=== PATIENT | male | born 1965 | race Caucasian/White ===

== ENCOUNTER 2017-04-01 13:43 | Emergency (ER) | payer OTHER ==
[~2017-04-01] VITALS: Ht 172.7 cm; Wt 118.9 kg
[~2017-04-01 13:43] MED LIST: AMBIEN10 MG PO; AMBIEN5 MG PO; AMITRIPTYLINE H25 MG PO; AMLODIPINE BESY10 MG PO; AMLODIPINE BESYL5 MG PO; AMLODIPINE PO; AMLODIPINE-BEN1 EAC5 PO; AUGMENTIN875 MG PO; AVELOX400 MG PO; AZOR 10/20 M1 TABLET PO; Ambien PO; BACTRIM PO; BACTRIM,SEPT1 TABLE1 PO; BACTRIM,SEPT1 TABLET PO; BENAZEPRIL PO; CEFTIN500 MG PO; CIALIS5 MG PO; CIPRO750 MG PO; CIPRODEX OTIC7.5 ML LEFT EAR; CLEOCIN300 MG PO; CLONIDINE HCL0.1 MG PO; Coumadin dosing per PO; Coumadin,Jantoven PO; DIOVAN HCT 31 TABLE1 PO; EAR DROPS15 ML BOTH EARS; EXFORGE HCT 101 EAC1 PO; Glucophage PO; HIZENTRA4 GM/20 ML SC; HYCODAN SYRUP5 ML PO; KEPPRA500 MG PO; KETOROLAC TROMET5 ML LEFT EYE; Kadian PO; LANTUS 3 M100 UNITS1 SC; LEVAQUIN750 MG PO; LIDODERM 5% P1 PATCH TD; LIVALO1 MG PO; LO-DOSE ASPIRIN81 M2 PO; LOVENOX SQ; LYRICA75 MG PO; METFORMIN HCL1000 MG PO; NIFEDIPINE ER30 MG PO; NIFEDIPINE ER60 MG PO; NORTRIPTYLINE H25 MG PO; NORVASC5 MG PO; NOVOLOG 10100 UNITS/ SC; NOVOLOG PE100 UNITS/ SC; ONDANSETRON HCL8 MG PO; OXCARBAZEPINE300 MG PO; OXYCODONE5 MG PO; PRED FORTE100 DROP/5 BOTH EYES; PREDNISONE10 MG; PREDNISONE10 MG PO; PREDNISONE20 MG PO; PROAIR HFA8.5 GM IH; PROTONIX40 MG PO; RANITIDINE HCL150 MG PO; SIMVASTATIN20 MG PO; SIMVASTATIN40 MG PO; SPIRIVA RESPIMAT4 GM IH; STOOL SOFTENER100 MG PO; SYMBICORT60 INHALAT IH; TOPAMAX100 MG PO; TOPAMAX25 MG PO; TOPIRAMATE100 MG PO; TOPIRAMATE25 MG PO; TRESIBA FL100 UNIT/1 SC; TRILEPTAL300 MG PO; TYLENOL WITH C1 EACH PO; VALTREX50 MG/ML; VALTREX50 MG/ML PO; VFEND200 MG PO; VIDAZA100 MG SQ; VORICONAZOLE200 MG PO; ZITHROMAX500 MG PO; ZOFRAN4 MG PO; ZOFRAN8 M1 PO; ZOFRAN8 MG PO; Zocor PO
[2017-04-01 15:28] LABS: HEMATOCRIT 45.4 % (38.0-50.0); HEMOGLOBIN 15.3 G/DL (12.5-16.6); MCH 31.6 PG (29.0-34.0); MCHC 33.7 G/DL (30.0-36.0); MCV 93.8 FL (86-99); PLATELET COUNT 177 K/uL (156-360); RBC DIS.WIDTH-CV 13.1 % (11.8-14.6); RBC DIS.WIDTH-SD 45.2 % (39-53); RED BLOOD COUNT 4.84 M/uL (4.00-5.50); WHITE BLOOD COUNT 6.7 K/uL (4.1-10.2)
[2017-04-01 15:38] LABS: ALBUMIN 3.9 g/dL (3.2-4.8)
[2017-04-01 15:39] LABS: CHLORIDE 111 mEq/L (99-109); POTASSIUM 4.8 mEq/L (3.7-5.4); SODIUM 141 mEq/L (136-147)
[2017-04-01 15:41] LABS: GLUCOSE 158 mg/dL (70-99); TOTAL PROTEIN 6.8 g/dL (6.4-8.3)
[2017-04-01 15:43] LABS: TOTAL BILIRUBIN 0.3 mg/dL (0.0-1.0)
[2017-04-01 15:44] LABS: ALKALINE PHOSPHATASE 119 IU/L (3-129)
[2017-04-01 15:45] LABS: CREATININE 1.4 mg/dL (0.6-1.3); GFR ESTIMATE (CALCULATED) 57 mL/min/ (58.99-99999)
[2017-04-01 15:46] LABS: AST (GOT) 65 IU/L (2-34); UREA NITROGEN (BUN) 22 mg/dL (9-23)
[2017-04-01 15:48] LABS: ALT (GPT) 109 IU/L (3-49)
[2017-04-01 19:13] LABS: APPEARANCE SL.HAZY ((CLEAR)); BILIRUBIN NEGATIVE; BLOOD SMALL; COLOR YELLOW ((YELLOW)); GLUCOSE (STRIP) NEGATIVE; KETONES NEGATIVE; LEUKOCYTES NEGATIVE; NITRITE NEGATIVE; PROTEIN (STRIP) 30; SPECIFIC GRAVITY 1.028 (1.000-1.030); UROBILINOGEN 0.2 MG/DL (0.2-1.0)
[2017-04-01 19:29] LABS: BACTERIA NONE SEEN /HPF; EPITHELIAL CELLS NONE SEEN /HPF; MUCUS 1+ /LPF; UCUL ADDED? NO; WHITE BLOOD CELLS 0-5 /HPF (0-5)
[2017-04-01 20:00] LABS: C DIFF TOXIN POSITIVE (NEGATIVE)
[2017-04-01] MEDS ORDERED: FLAGYL500 MG PO (21:48)
[2017-04-01] MEDS ORDERED: ZOFRAN4 MG PO (21:48)
[2017-04-01 22:13] VITALS: BP 162/99
== END 2017-04-01 22:21 | disposition home or self-care (01) ==
LOC: EME 13:43
PROVIDERS: Physician Assistant
DX: A04.72 Enterocolitis due to Clostridium difficile, not specified as recurrent (principal); F32.9 Major depressive disorder, single episode, unspecified; E11.9 Type 2 diabetes mellitus without complications; J44.9 Chronic obstructive pulmonary disease, unspecified; Z79.4 Long term (current) use of insulin; Z79.82 Long term (current) use of aspirin; Z88.5 Allergy status to narcotic agent; Z87.891 Personal history of nicotine dependence; Z87.19 Personal history of other diseases of the digestive system
CPT/HCPCS: 80053; 81003; 85027; 87493; 87502; 87506; 99281; 99285; J2270; J2405; J7030